=== PATIENT | male | born 1980 | race Caucasian/White ===

== ENCOUNTER 2017-12-15 13:30 | Emergency (ER) | payer OTHER ==
[~2017-12-15] VITALS: Ht 179.1 cm; Wt 87.5 kg
[~2017-12-15 13:30] MED LIST: EPP3/2 IM
[2017-12-15 13:46] VITALS: TEMP 36.8; Ht 179.1 cm; Wt 87.5 kg
[2017-12-15] MEDS ORDERED: PROPARACAINE HCL 0.5% OP SOLN 15 ML BTL OP STA (13:56)
[2017-12-15] MEDS ORDERED: CIPR0.3S OP (14:33)
[2017-12-15] MEDS ORDERED: DIPHTHERIA/TETANUS/PERTUSSIS 0.5 ML SYR/VIAL IM. ONE (14:45)
[2017-12-15 15:07] VITALS: BP 110/67; PULSE 75; O2SAT 98
--- NOTE | 2017-12-17 12:02 | EMERGENCY ROOM VISIT NOTE ---
ED Visit Note First contact with patient: 13:55 Chief Complaint: I think I have a piece of metal in my right eye. History of Present Illness: Mr. Regalado is a 37-year-old white male who ambulates into the ED complaining of a foreign body in the right eye. Patient reports he was at work yesterday. He reports he was cutting a metal pipe and felt a piece of the metal go into his right eye. He reports since that time he has had a foreign body sensation in the right eye. He reports he used a magnet and did report move one small piece of metal from the eye but continues to have the discomfort. Currently he denies any specific pain in the eye except for that there is a foreign body sensation. This foreign body sensation worsens with blinking. He has not identified any alleviating factors related to the discomfort. Associated with his discomfort he does report he has mild light sensitivity and tearing. He denies any associated fevers, chills, sweats, skin eruptions, skin color changes, headache, visual changes, decreased appetite, nausea/vomiting. Review of Systems: As noted above in history of present illness. 5 body systems were reviewed and found to be negative as noted above. Past Medical History: Patient denies. Current Medications: Patient denies. Allergies to Medications: Patient denies. Social History: Patient is currently employed; he feels safe in his home environment; he denies tobacco use. Tetanus Immunization Status: Patient reports probably greater than 10 years. Physical Examination: Vital Signs: Date Time Temp Pulse Resp B/P (MAP) Pulse Ox O2 Delivery O2 Flow Rate FiO2 12/15/17 15:07 75 16 110/67 98 12/15/17 13:46 36.8 70 16 135/82 99 Room Air GENERAL: 37-year-old male in no acute distress, nontoxic-appearing, afebrile and hemodynamically stable. NEUROLOGICAL: Awake, alert and oriented to person, place and time. Answering questions appropriately and following commands. Normal gait. Good hand eye coordination. SKIN: Warm, dry and pink. No soft tissue eruptions or trauma noted. HEENT: Atraumatic and normocephalic. PERRLA. EOMI. Sclera white and conjunctiva pink without drainage. Small foreign body was found on the front of the eye at the 9 o'clock position just lateral to the iris. There was no foreign bodies under the eyelids are embedded in the cornea. The anterior chamber was clear. ED Course: Patient is assessed as noted above. Patient's medication list was reviewed. Patient was offered pain medication and refused. Alcaine was used to anesthetize the eye for examination. The foreign body was easily removed with a sterile saline soaked Q-tip. Patient was given an Adacel booster. Patient was educated about today's findings and instructed on his treatment plan ; he verbalized understanding and agreement with this plan. Clinical Impression: Foreign body right eye. Disposition: Patient discharged home in stable condition; prior to departure he was reassessed and subjectively reported he was pain-free. Plan: Patient was encouraged alternate ibuprofen and acetaminophen as needed for pain every 3 hours. Patient was encouraged to use 2 drops of Ciloxan eyedrops in the eye every 4 hours for 5 days. Patient was encouraged to follow-up with Workmen[employer] Compensation as needed for recheck in 2-3 days. Patient was encouraged return the ED for fevers, headaches, vomiting, visual changes, uncontrolled pain or any new/concerning symptoms.
== END 2017-12-15 15:08 | disposition home or self-care (01) ==
LOC: C.EDB 13:32 → C.EDD 15:08
DX: S05.51XA Penetrating wound with foreign body of right eyeball, initial encounter (principal); W26.8XXA Contact with other sharp object(s), not elsewhere classified, initial encounter; Z23 Encounter for immunization